=== PATIENT | female | born 1985 | race Hispanic/Latino ===

== ENCOUNTER 2019-07-13 23:14 | Inpatient (IN) | payer BC ==
[~2019-07-13] VITALS: Ht 165.1 cm; Wt 99.8 kg
[2019-07-14 00:18] LABS: APPEARANCE,URINE Cloudy (CLEAR); BILIRUBIN,URINE Negative (NEGATIVE); COLOR,URINE Yellow (YELLOW); GLUCOSE, URINE (UA) Negative (NEGATIVE); KETONES,URINE Negative (NEGATIVE); LEUKOCYTE ESTERASE ,URINE Large (NEGATIVE); NITRATE,URINE Negative (NEGATIVE); OCCULT BLOOD,URINE Large (NEGATIVE); PROTEIN,URINE Negative (NEGATIVE); UROBILINOGEN,URINE 0.2 mg/dL (0.2-1.0)
[2019-07-14 00:26] LABS: HEMATOCRIT 36.1 % (36-48); MEAN CORPUSCULAR HEMOGLOBIN 32.1 pg (27.0-33.0); MEAN CORPUSCULAR HGB CONC 35.6 g/dL (32.0-36.0); MEAN CORPUSCULAR VOLUME 90.2 fL (79-99); NUCLEATED RED BLOOD CELLS 0.1 % (0.0-0.19); PLATELET COUNT (AUTO) 229 K/uL (130-400); RED CELL DISTRIBUTION WIDTH 13.3 % (11.0-15.5); WHITE BLOOD COUNT (AUTO) 11.4 K/uL (4.8-10.8)
[2019-07-14 00:35] LABS: BACTERIA,URINE Moderate /HPF (None Seen); WBC,URINE 51-100 /HPF (0-1)
[2019-07-14 00:43] VITALS: BP 127/60
[2019-07-14] MEDS ORDERED: ROPIVACAINE 0.2% 100ML VIAL 100 ML EP PRN (00:45)
[2019-07-14] MEDS ORDERED: EPHEDRINE SULFATE 50 MG/ML AMPULE IVP PRN (00:45)
[2019-07-14] MEDS ORDERED: NALOXONE HCL 0.4 MG/1 ML ML IV PRN (00:45)
[2019-07-14] MEDS ORDERED: PROMETHAZINE HCL 25 MG/ML 1ML AMPULE IM PRN (00:45)
[2019-07-14] MEDS ORDERED: LACTATED RINGERS 500 ML 500 ML IV PRN (00:45)
[2019-07-14] MEDS ORDERED: MEPERIDINE-PF 50 MG/ML SYG IVP PRN (00:45)
[2019-07-14 01:04] LABS: AMPHET/METH SCREEN,URINE NEGATIVE (NEGATIVE); BARBITURATE SCREEN, URINE NEGATIVE (NEGATIVE); BENZODIAZEPINES SCREEN,URINE NEGATIVE (NEGATIVE); CANNABINOID SCREEN,URINE NEGATIVE (NEGATIVE); COCAINE SCREEN,URINE NEGATIVE (NEGATIVE); OPIATE SCREEN,URINE NEGATIVE (NEGATIVE); PHENCYCLIDINE SCREEN,URINE NEGATIVE (NEGATIVE)
[2019-07-14] MEDS ORDERED: DINOPROSTONE 10 MG VAGINAL SUPP ONE (01:20)
[2019-07-14] MEDS: LACTATED RINGERS 1000ML 1,000 ML IV PRN ×2 (02:59→05:12)
[2019-07-14] MEDS ORDERED: DINOPROSTONE 10 MG VAGINAL SUPP VG SCH (03:00)
[2019-07-14 08:12] LABS: RAPID PLASMA REAGIN NONREACTIVE (NONREACTIVE)
[2019-07-14] MEDS ORDERED: OXYTOCIN-LR 20 UNITS/1000 ML 1,000 ML IV ONE (09:56)
[2019-07-14] MEDS ORDERED: OXYTOCIN 10 USP UNITS/ML 20 UNIT in LACTATED RINGERS 1000ML 1,000 ML IV SCH (10:00)
[2019-07-14] MEDS ORDERED: FENTANYL CITRATE PF 50 MCG/1 ML 2ML VIAL ONE (12:57)
[2019-07-14] MEDS ORDERED: DIPH,PERTUSS(ACELL),TET VAC/PF 0.5 ML VIAL IM PRN (13:45)
[2019-07-14] MEDS ORDERED: LANOLIN 30GM OINTMENT TP PRN (13:45)
[2019-07-14] MEDS ORDERED: OXYTOCIN-LR 20 UNITS/1000 ML 1,000 ML IV SCH (13:45)
[2019-07-14] MEDS ORDERED: ACETAMINOPHEN-CODEINE 300/30MG TAB PO PRN (13:45)
[2019-07-14] MEDS ORDERED: WITCH HAZEL 1 PAD TP PRN (13:45)
[2019-07-14] MEDS ORDERED: BENZOCAINE/LANOLIN/ALOE VERA 60 ML AEROSOL TP PRN (13:45)
[2019-07-14] MEDS ORDERED: MEASLES/MUMPS/RUBELLA VACCINE, LIVE 0.5 ML/VIAL SQ PRN (13:45)
[2019-07-14] MEDS ORDERED: ACETAMINOPHEN 325 MG TAB PO PRN (13:45)
[2019-07-14] MEDS: IBUPROFEN 600 MG TABLET PO PRN ×2 (14:24→20:51)
[2019-07-14 14:40] VITALS: BP 131/73
[2019-07-14] MEDS ORDERED: PNV71COM PO (14:57)
[2019-07-14] MEDS ORDERED: ADV500 IH (14:57)
[2019-07-14 16:57] VITALS: BP 129/70
[2019-07-14 19:38] VITALS: BP 126/73
[2019-07-14] MEDS: DOCUSATE SODIUM 100 MG CAP PO SCH (20:49)
[2019-07-14 23:19] VITALS: BP 107/64
[2019-07-15 03:19] VITALS: BP 122/71
[2019-07-15] MEDS: IBUPROFEN 600 MG TABLET PO PRN ×2 (06:46→16:06)
[2019-07-15 07:07] LABS: HEMATOCRIT 38.5 % (36-48); MEAN CORPUSCULAR HEMOGLOBIN 31.4 pg (27.0-33.0); MEAN CORPUSCULAR HGB CONC 34.3 g/dL (32.0-36.0); MEAN CORPUSCULAR VOLUME 91.4 fL (79-99); PLATELET COUNT (AUTO) 214 K/uL (130-400); RED BLOOD CELL COUNT(AUTO) 4.21 MIL/uL (4.00-5.50); RED CELL DISTRIBUTION WIDTH 13.2 % (11.0-15.5); WHITE BLOOD COUNT (AUTO) 13.2 K/uL (4.8-10.8)
[2019-07-15 07:26] VITALS: BP 115/72
[2019-07-15] MEDS: DOCUSATE SODIUM 100 MG CAP PO SCH (08:57)
[2019-07-15 11:38] VITALS: BP 131/63
--- NOTE | 2019-07-15 13:00 | NUR ---
DR. BARAJAS ROUNDED AND DISCHARGED PT TO HOME ON MOTRIN. PATIENT IS TO KEEP HER FOLLOW UP APPOINTMENT SCHEDU;LED IN CLINIC .
--- NOTE | 2019-07-15 14:55 | NUR ---
PATIENT WAS GIVEN DISCHARGE INSTRUCTIONS AND SCRIPT FOR HOME PAIN MANAGEMENT. VERBALIZED UNDERSTANDING INSTRUCTIONS GIVEN.
[2019-07-15 16:00] VITALS: BP 116/70
--- NOTE | 2019-07-15 16:25 | NUR ---
PATIENT WAS TAKEN VIA W/C CARRYING BABY IN ARMS TO FAMILY VEHICLE AND WAS DISCHARGED TO HER SPOUSE IN STABLE. CONDITION. PATIENT WAS ADMINISTERED MOTRIN PRIOR TO DISCHARGE FOR MILD DISCOMFORT.
[2019-07-17 06:09] LABS: HEPATITIS Bs ANTIGEN SCREEN P Negative (Negative)
== END 2019-07-15 16:25 | disposition home or self-care (01) | DRG 807 ==
LOC: LDH 23:36 → WSH 07-14 14:40
PROVIDERS: ADMIT Obstetrics & Gynecology; ATTEND Obstetrics & Gynecology
PROC: 10E0XZZ Delivery of Products of Conception, External Approach (ICD-10-PCS; principal; 2019-07-14)
PROC: 0HQ9XZZ Repair Perineum Skin, External Approach (ICD-10-PCS; 2019-07-14)
PROC: 3E02340 Introduction of Influenza Vaccine into Muscle, Percutaneous Approach (ICD-10-PCS; 2019-07-14)
PROC: 3E0234Z Introduction of Serum, Toxoid and Vaccine into Muscle, Percutaneous Approach (ICD-10-PCS; 2019-07-14)
PROC: 3E033VJ Introduction of Other Hormone into Peripheral Vein, Percutaneous Approach (ICD-10-PCS; 2019-07-14)
DX: O70.0 First degree perineal laceration during delivery (principal); Z37.0 Single live birth; Z3A.40 40 weeks gestation of pregnancy; Z23 Encounter for immunization
CPT/HCPCS: 36415; 80305; 81001; 85027; 86592; 86701; 86850; 86900; 86901; 87340; 87390; 90715; G0378; J2175; J2550; J2590; J3010; J7120